=== PATIENT | male | born 1930 | race Caucasian/White ===

== ENCOUNTER 2020-09-05 17:52 | Emergency (ER) | payer OTHER ==
[~2020-09-05] VITALS: Ht 175.3 cm; Wt 52.6 kg
[2020-09-05 17:52] VITALS: BP_SYST 113
[2020-09-05 20:09] LABS: INR 2.1 (0.80-1.20); PROTHROMBIN TIME 21.5 SECS (9.5-12.5)
[2020-09-05 21:22] VITALS: BP_SYST 113
== END 2020-09-05 21:22 | disposition home or self-care (01) ==
LOC: SED 17:52
DX: M25.561 Pain in right knee (principal); M25.562 Pain in left knee; M79.671 Pain in right foot; M79.672 Pain in left foot; V49.49XA Driver injured in collision with other motor vehicles in traffic accident, initial encounter; Y93.89 Activity, other specified; Y92.89 Other specified places as the place of occurrence of the external cause; Y99.8 Other external cause status
CPT/HCPCS: 36415; 82962; 85610-TC; 99284